=== PATIENT | female | born 2000 | race Two or more races ===

== ENCOUNTER 2024-09-30 19:19 | Emergency (ER) | payer OTHER ==
[~2024-09-30] VITALS: Ht 165.1 cm; Wt 56.2 kg
[2024-09-30 21:27] LABS: HEMATOCRIT 28.3 % (36.0-45.00); HEMOGLOBIN 9.5 g/dL (12.0-15.00); MEAN CELL VOLUME 82.4 fL (80.00-100.00); MEAN CORPUSCULAR HEMOGLOBIN 27.7 pg (27.00-32.0); MEAN CORPUSCULAR HGB CONC 33.6 g/dl (32.0-36.0); PLATELET COUNT 335 K/uL (150-450); RED BLOOD COUNT 3.43 M/uL (4.00-6.00); RED CELL DISTRIBUTION WIDTH 18.2 % (11.5-14.5)
[2024-09-30 22:14] LABS: URINE APPEARANCE Clear; URINE BILIRRUBIN Negative (NEGATIVE); URINE BLOOD Negative; URINE COLOR Yellow; URINE GLUCOSE Negative (NEGATIVE); URINE KETONE Trace (NEGATIVE); URINE LEUKOCYTE Large; URINE NITRATE Negative; URINE PROTEIN Negative (NEGATIVE)
[2024-09-30 22:17] LABS: URINE BACTERIA 883.2 uL (0.0-1933); URINE CAST 2.74 uL (0.0-1.40); URINE EPITHELIAL CELLS 28.1 uL (0.0-38.8); URINE RBC 35.7 uL (0.0-20.8); URINE WBC 118.2 uL (0.0-23.2)
[2024-09-30 22:29] LABS: URINE CRYSTALS FEW /HPF; URINE MUCUS SCANT
[2024-09-30] MEDS ORDERED: CORTISPORIN EAR10 M1 OPHT (22:55)
[2024-09-30] MEDS ORDERED: AMOX-CLAV 875-1 EACH PO (22:55)
[2024-09-30] MEDS ORDERED: CEFTRIAXONE SODIUM 1,000 MG VIAL IM ONE (23:15)
== END 2024-10-01 00:18 | disposition home or self-care (01) ==
LOC: ER 19:21
PROVIDERS: Nurse Practitioner Family
DX: R53.81 Other malaise (principal); R50.9 Fever, unspecified; H61.22 Impacted cerumen, left ear; Z20.822 Contact with and (suspected) exposure to COVID-19